=== PATIENT | female | born 2000 | race Caucasian/White ===

== ENCOUNTER 2023-01-23 12:50 | Outpatient (CLI) | payer BC, SELFPAY | END 2023-01-23 12:51 | disposition home or self-care (01) | PROVIDERS: PCP Physician Assistant Medical; Visit Provider Family Medicine | DX: Z00.00 Encounter for general adult medical examination without abnormal findings (principal); E04.9 Nontoxic goiter, unspecified; F33.9 Major depressive disorder, recurrent, unspecified; R53.83 Other fatigue | CPT/HCPCS: 80053; 80061; 80306; 84443 ==